=== PATIENT | male | born 1990 | race Two or more races ===

== ENCOUNTER 2019-05-21 10:23 | Inpatient (IN) | payer OTHER ==
[~2019-05-21] VITALS: Ht 180.3 cm; Wt 88.5 kg
[2019-05-25] MEDS ORDERED: LIBRAX (09:51)
[2019-05-29] MEDS ORDERED: CHLORDIAZEPOXI1 EACH (08:48)
== END 2019-06-01 17:13 | disposition home or self-care (01) | DRG 331 ==
LOC: SURG 05-29 04:00 → O/R 05-29 05:57 → SURG 05-29 05:57
PROVIDERS: ADMIT Colon & Rectal Surgery
PROC: 07TB4ZZ Resection of Mesenteric Lymphatic, Percutaneous Endoscopic Approach (ICD-10-PCS; 2019-05-29)
PROC: 0DJD8ZZ Inspection of Lower Intestinal Tract, Via Natural or Artificial Opening Endoscopic (ICD-10-PCS; 2019-05-29)
PROC: 0DTN4ZZ Resection of Sigmoid Colon, Percutaneous Endoscopic Approach (ICD-10-PCS; principal; 2019-05-29 04:00)
DX: C19 Malignant neoplasm of rectosigmoid junction (principal); K57.30 Diverticulosis of large intestine without perforation or abscess without bleeding; K63.89 Other specified diseases of intestine

== ENCOUNTER 2019-06-27 06:00 | Day surgery (SDC) | payer OTHER ==
[~2019-06-27 06:00] MED LIST: CENTRUM COMPLE1 EACH PO; CHLORDIAZEPOXI1 EACH; LIBRAX
== END 2019-06-27 13:00 | disposition home or self-care (01) ==
LOC: CIR.AMB 06:00
DX: C19 Malignant neoplasm of rectosigmoid junction (principal)
CPT/HCPCS: 36561; C1751

== ENCOUNTER 2019-08-10 12:11 | Inpatient (IN) | payer OTHER ==
[~2019-08-10] VITALS: Ht 180.3 cm; Wt 79.4 kg
[2019-08-13] MEDS ORDERED: PROTONIX40 MG PO (15:28)
== END 2019-08-13 16:11 | disposition home or self-care (01) | DRG 390 ==
LOC: ER 12:11 → SURH 19:53
PROVIDERS: ADMIT Colon & Rectal Surgery
DX: K56.690 Other partial intestinal obstruction (principal); Z85.038 Personal history of other malignant neoplasm of large intestine